=== PATIENT | male | born 1955 | race Native Hawaiian/Other Pacific Islander ===

== ENCOUNTER 2016-06-30 07:35 | Day surgery (SDC) | payer OTHER ==
[2016-06-30 08:13] VITALS: BMI 25.8
[2016-06-30] MEDS ORDERED: Propofol 10 mg/ml Inj (20 ML) ONE ×2 (09:31)
[2016-06-30 10:35] VITALS: TEMP 97.5; O2SAT 100
[2016-06-30 12:01] VITALS: BP 110/71; PULSE 59; RESP 14
== END 2016-06-30 11:40 | disposition home or self-care (01) ==
LOC: C.ENDO 07:35
PROVIDERS: ATTEND Internal Medicine Gastroenterology
DX: Z12.11 Encounter for screening for malignant neoplasm of colon (principal); D12.7 Benign neoplasm of rectosigmoid junction; D12.5 Benign neoplasm of sigmoid colon; K64.1 Second degree hemorrhoids
CPT/HCPCS: 45385; 82948; 88305; J2704

== ENCOUNTER 2018-04-06 10:28 | Outpatient (CLI) | payer OTHER | END 2018-04-06 10:29 | disposition home or self-care (01) | LOC: C.LAB 10:28 | DX: E11.9 Type 2 diabetes mellitus without complications (principal); E78.00 Pure hypercholesterolemia, unspecified; I10 Essential (primary) hypertension; J02.9 Acute pharyngitis, unspecified ==

== ENCOUNTER 2018-05-26 08:09 | Outpatient (CLI) | payer OTHER | END 2018-05-26 08:10 | disposition home or self-care (01) | LOC: C.MRIC 08:09 ==

== ENCOUNTER 2018-07-04 07:25 | Outpatient (CLI) | payer OTHER | END 2018-07-04 07:26 | disposition home or self-care (01) | LOC: C.RADH 07:25 ==